=== PATIENT | female | born 1960 | race Caucasian/White ===

== ENCOUNTER 2016-05-11 07:16 | Day surgery (SDC) | payer MEDICAID ==
[2016-05-10 10:17] LABS: HEMATOCRIT 43.2 % (36.0-48.0); MCH 30.7 pg (26.0-34.0); MCHC 32.4 g/dL (31.0-37.0); MCV 94.7 fL (80.0-100.0); MEAN PLATELET VOLUME 10.7 fL (7.4-10.4); RBC 4.56 10x6/uL (4.00-5.40); RDW 12.9 % (11.5-14.5); WBC 5.4 10x3/uL (4.8-10.8)
[2016-05-10 10:22] LABS: ANION GAP 12.7 mmol/L (8-16); CALCIUM 9.8 mg/dL (8.5-10.1); CARBON DIOXIDE 28.4 mmol/L (21.0-32.0); CREATININE - SERUM 0.9 mg/dL (0.6-1.3); POTASSIUM - SERUM 4.1 mmol/L (3.5-5.1)
[2016-05-10 10:56] LABS: APPEARANCE CLEAR (CLEAR); COLOR YELLOW (YELLOW)
[2016-05-10 10:57] LABS: AMORPHOUS SEDIMENT >1+ /lpf (NONE SEEN); BACTERIA MODERATE /hpf (NONE SEEN); BILIRUBIN NEGATIVE (NEGATIVE); EPITHELIAL CELLS 0-5 /hpf (0-5); GLUCOSE NEGATIVE (NEGATIVE); KETONE NEGATIVE (NEGATIVE); LEUKOCYTE ESTERASE 2+ (NEGATIVE); MUCUS <1+ /lpf (NONE SEEN); NITRITE NEGATIVE (NEGATIVE); PROTEIN NEGATIVE (NEGATIVE)
[~2016-05-11] VITALS: Ht 165.1 cm; Wt 78.9 kg
[~2016-05-11 07:16] MED LIST: ALEVE220 MG PO; CYCLOBENZAPRINE10 MG PO; CYMBALTA30 MG; DYAZIDE 37.5/251 CAP PO; ESTRACE 0.5 MG0.5 MG PO; PROAIR HFA8.5 GM INH
[2016-05-11 09:00] VITALS: BP 131/55; Ht 165.1 cm; Wt 78.9 kg
[2016-05-11] MEDS ORDERED: HYDROCODON-ACE1 EAC7 PO (10:47)
--- NOTE | 2016-05-11 13:52 | OP ---
PATIENT NAME: MARY GARCIA MEDICAL RECORD: [id number] :60 LOCATION:D.[facility] ADMISSION DATE: SURGEON: SIMON APARICIO MD DATE OF OPERATION: 05/11/2016 SURGEON: Simon Aparicio MD PREOPERATIVE DIAGNOSES: 1. Right upper quadrant pain. 2. Biliary dyskinesia. POSTOPERATIVE DIAGNOSES: 1. Right upper quadrant pain. 2. Biliary dyskinesia. PROCEDURE PERFORMED: Laparoscopic cholecystectomy. ANESTHESIA: General. COMPLICATIONS: None. SPECIMENS: Gallbladder. Case was clean contaminated. ESTIMATED BLOOD LOSS: 10 cc. OPERATIVE COURSE: After consent was obtained, the patient was taken to the operating room and placed in the supine position on the operating table. Next, general anesthesia was given via endotracheal intubation. Thereafter, a timeout was taken to confirm the correct patient and procedure. The abdomen was prepped and draped in typical sterile fashion. Local anesthetic was injected just above the umbilicus. A stab incision was made with an 11-blade scalpel. Using a 5-mm bladeless optical trocar, the abdomen was entered under direct laparoscopic vision. Adequate pneumoperitoneum was achieved. The abdominal cavity was inspected. No evidence of bowel injury. No evidence of bleeding. The patient was placed in steep reverse Trendelenburg position. All 3 remaining trocars were then placed after the administration of local anesthetic under direct laparoscopic vision, two 5-mm trocars in the right upper quadrant and 11-mm trocar in the subxiphoid position. The fundus of the gallbladder was grasped and retracted cephalad. The infundibulum was grasped and retracted laterally. The peritoneum was incised using electrocautery. Blunt dissection was performed with a [place] dissector until the critical view was obtained. Cystic duct lateral, cystic artery medial, liver in the posterior window. Two clips were placed in the proximal cystic artery. Three clips were placed in the proximal cystic duct, one clip distal. The duct and artery were then transected with laparoscopic Metzenbaum scissors. The remaining portion of the gallbladder was then dissected off the liver bed using electrocautery. Once complete, it was grasped with the tenaculum and removed through the 11-mm trocar and sent for permanent pathology. Next, the operative field was copiously irrigated and suctioned. Careful attention was paid to hemostasis, which was obtained in the liver bed using electrocautery. The duct and artery were then inspected. There were [address] in the cystic duct, [address] in the cystic artery. The abdominal cavity was inspected. No evidence of bowel injury. No evidence of bleeding. No evidence of bile leak. At this time, all remaining instruments OPERATIVE REPORT [id number] MARY GARCIA were removed. The abdomen was desufflated. Trocars were removed. Skin was closed with 4-0 Monocryl, Mastisol and Steri-Strips. At the end of the case, all needle and instrument counts were correct. No complications occurred. The patient was extubated and transferred to the PACU in stable condition. TRANSINT:[id number] Voice Confirmation ID: [id number] DOCUMENT ID: [id number] SIMON APARICIO MD at 1352 CC: [id number] DICTATION DATE: 05/11/16 1051 PRESSURE TESTER OPERATOR: 05/11/16 110[id number] [place] [address]
== END 2016-05-11 15:25 | disposition home or self-care (01) ==
LOC: D.OPS 07:16 → D.PAN 09:30 → D.OPS 09:30
PROVIDERS: Anesthesiology
DX: K82.8 Other specified diseases of gallbladder (principal)

== ENCOUNTER → 2016-09-19 08:44 | Outpatient (CLI) | payer MEDICAID ==
[2016-05-11 09:00] VITALS: BMI 29.0
[~2016-09-19 08:44] MED LIST changes: +HYDROCODON-ACE1 EAC7 PO
== END ==
LOC: D.MAMMO 08:44
DX: Z12.31 Encounter for screening mammogram for malignant neoplasm of breast (principal)

== ENCOUNTER → 2018-01-30 07:46 | Outpatient (CLI) | payer MEDICAID ==
[2016-05-11 09:00] VITALS: BMI 29.0
== END | disposition home or self-care (01) ==
LOC: D.US 07:46
DX: K76.0 Fatty (change of) liver, not elsewhere classified (principal)

== ENCOUNTER 2018-02-28 17:39 | Emergency (ER) | payer MEDICAID ==
[~2018-02-28] VITALS: Ht 165.1 cm; Wt 79.5 kg
[2018-02-28 17:43] VITALS: Ht 165.1 cm; Wt 79.5 kg
[2018-02-28 18:21] LABS: BASOPHILS 0.5 % (0-2); EOSINOPHILS 0.6 % (0-7); HEMATOCRIT 40.7 % (36.0-48.0); HEMOGLOBIN 13.6 g/dL (12-16); IMMATURE GRANULOCYTES 0.3 % (0-5); LYMPHOCYTES 27.3 % (15-50); MCH 30.2 pg (26.0-34.0); MCHC 33.4 g/dL (31.0-37.0); MCV 90.4 fL (80.0-100.0); MEAN PLATELET VOLUME 10.3 fL (7.4-10.4); MONOCYTES 7.3 % (2-11); PLATELET COUNT 184 10x3/uL (130-400); WBC 6.4 10x3/uL (4.8-10.8)
[2018-02-28 18:33] LABS: APPEARANCE HAZY (CLEAR); BILIRUBIN NEGATIVE (NEGATIVE); COLOR YELLOW (YELLOW); GLUCOSE NEGATIVE (NEGATIVE); KETONE SMALL mg/dL (NEGATIVE); NITRITE NEGATIVE (NEGATIVE); PROTEIN NEGATIVE (NEGATIVE); UROBILINOGEN NORMAL (NORMAL)
[2018-02-28 19:36] LABS: ALBUMIN 3.8 g/dL (3.4-5.0); ALKALINE PHOSPHATASE 99 U/L (46-116); ALT (SGPT) 61 U/L (10-68); AMYLASE - SERUM 34 U/L (25-115); BILIRUBIN - TOTAL 0.59 mg/dL (0.2-1.3); CALC OSMOLALITY 282 mosm/kg (275-300); CALCIUM 9.1 mg/dL (8.5-10.1); CARBON DIOXIDE 21.8 mmol/L (21.0-32.0); CHLORIDE - SERUM 105 mmol/L (98-107); CREATININE - SERUM 0.8 mg/dL (0.6-1.3); GLUCOSE 71 mg/dL (74-106); LIPASE 92 U/L (73-393); POTASSIUM - SERUM 3.9 mmol/L (3.5-5.1); PROTEIN - SERUM 7.5 g/dL (6.4-8.2); SODIUM 142 mmol/L (136-145); TROPONIN-I < 0.017 ng/mL (0.000-0.060); UREA NITROGEN 17 mg/dL (7-18); eGFR NON AFRICAN AMERICAN 78 mL/min (90-120)
[2018-02-28 21:13] VITALS: BP 129/70
== END 2018-02-28 21:14 | disposition home or self-care (01) ==
LOC: D.ER 17:39
PROVIDERS: Family Medicine
DX: R10.31 Right lower quadrant pain (principal)

== ENCOUNTER → 2018-03-02 09:06 | Outpatient (CLI) | payer MEDICAID ==
[2018-02-28 17:43] VITALS: BMI 29.1
== END | disposition home or self-care (01) ==
LOC: D.RAD 09:06
DX: R10.9 Unspecified abdominal pain (principal); R11.2 Nausea with vomiting, unspecified; R13.10 Dysphagia, unspecified

== ENCOUNTER → 2018-03-28 10:57 | Outpatient (CLI) | payer MEDICAID ==
[2018-02-28 17:43] VITALS: BMI 29.1
[2018-04-03 03:10] LABS: OVA + PARASITE EXAM Final report (())
== END | disposition home or self-care (01) ==
LOC: D.LAB 10:57
PROVIDERS: Internal Medicine Gastroenterology
DX: R19.7 Diarrhea, unspecified (principal)

== ENCOUNTER 2018-09-04 14:29 | Observation (INO) | payer MEDICAID ==
[~2018-09-04] VITALS: Ht 165.1 cm; Wt 82.1 kg
--- NOTE | ~2018-09-04 | EC ---
PATIENT:MARY GARCIA DATE OF SERVICE: 09/04/18 SEX: F MEDICAL RECORD: [id number] DATE OF : 60 LOCATION:D.M2 D.210 AGE OF PATIENT: 58 ADMISSION DATE: 09/04/18 REFERRING PHYSICIAN: INTERPRETING PHYSICIAN: YARI SIM MD ECHOCARDIOGRAM REPORT ECHO CHARGES 4 ECHO COMPLETE Date: 09/05/18 CLINICAL DIAGNOSIS: SOB ECHOCARDIOGRAPHIC MEASUREMENTS (adult normal given) AC root (d.<3.7cm) 2.7 cm LV Septum d (<1.2 cm> 0.8 cm Valve Excursion 1.7 cm LV Septum (systole) 1.6 cm Left Atria (s.<4.0cm> 2.8 cm LVPW d(<1.2cm) 1.0 cm RV (d.<2.3cm) 2.2 cm LVPW (sytole) 1.8 cm LV diastole(<5.6CM) 5.1 cm MV E-F(>70mm/sec) cm LV systole 2.7 cm LVOT Diameter 1.9 cm MV exc.(>10mm) cm Est.ejection fraction (50-75%) % DOPPLER: LVIT cm/sec A 63.0 cm/sec E 71.0 cm/sec LA cm/sec RVSP mmHg LVOT 100 cm/sec AOP1/2T m/s Asc. Ao 120 cm/sec RVOT 67.0 cm/sec RA cm/sec PA 108 cm/sec AV Gradient Peak 5.7 mmHg AV Mean 2.7 mmHg AV Area 2.2 cm MV Gradient Peak 3.4 mmHg MV Mean 1.5 mmHg MV Area cm COMMENTS: [employer] Consultant: Claire BERNARDOE Government Relations Manager: 1 Dr. Sim TAPE# PACS Pericardial Effusion N DATE OF SERVICE: 09/05/2018 PROCEDURE: Echocardiogram. FINDINGS: 1. Left ventricular chamber size is within normal limits. Left ventricular systolic function is normal. Overall ejection fraction estimated at 55%. 2. Left atrium, right atrium and right ventricular chamber sizes are within normal limits. 3. Valvular structures have normal structure and motion. ECHOCARDIOGRAM REPORT [id number] MARY GARCIA 4. Doppler interrogation reveals trace tricuspid regurgitation, no other valvular insufficiency or stenosis. 5. No evidence of pericardial effusion or left ventricular thrombus. TRANSINT:[id number] Voice Confirmation ID: [id number] DOCUMENT ID: [id number] YARI SIM MD CC: [id number] DICTATION DATE: 09/06/1843 CERTIFIED PEDORTHOTIST: 09/06/18 0953 DIS IN 09/05/18 [id number] [place] [id number]
--- NOTE | ~2018-09-04 | ST ---
PATIENT:MARY GARCIA MEDICAL RECORD: [id number] SEX: F LOCATION:[address] ORDER #: ADMISSION DATE: 09/04/18 AGE OF PATIENT: 58 REFERRING PHYSICIAN: INTERPRETING PHYSICIAN: YARI BARRAZA MD DATE OF SERVICE: 09/05/2018 PROCEDURE: Nuclear stress test. INDICATION: Chest pain of unknown etiology. She was exercised on standard Lexiscan protocol with 24 mCi of sestamibi injected at peak stress. FINDINGS: There is homogeneous uptake throughout all segments at stress only images with no evidence of inducible ischemia or previous infarction. Gated SPECT was performed and reveals an ejection fraction of greater than 80%. OVERALL IMPRESSION: This is a normal nuclear stress test with no evidence of inducible ischemia or previous infarction. Symptomatology is noncardiac in etiology. TRANSINT:[id number] Voice Confirmation ID: [id number] DOCUMENT ID: [id number] YARI BARRAZA MD CC: [id number] DICTATION DATE: 09/05/18 1525 FITTER TYPE BAR AND SEGMENT: 09/06/18 0326 DIS IN 09/05/18 [facility] [address] [id number]
--- NOTE | ~2018-09-04 | CN ---
PATIENT NAME:MARY GARCIA MEDICAL RECORD: [id number] : 60 LOCATION:D. D.2103 ADMIT DATE: 09/04/18 ACCOUNT: [id number] CONSULTING PHYSICIAN: YARI BARRAZA MD REFERRING PHYSICIAN: CHAVO HERNANDEZ MD DATE OF CONSULTATION: 09/05/2018 ADMITTING DIAGNOSES: 1. Chest pain. 2. Shortness of breath. 3. Asthma. 4. Gastroesophageal reflux disease. 5. Hypertension. HISTORY OF PRESENT ILLNESS: Mrs. Garcia has been having episodes of chest pain and chest discomfort over the past 2 days. These are associated with shortness of breath and diaphoresis. The episodes would last up to 30 minutes, sometimes in conjunction with exertion, sometimes at rest. She presented to her primary care physician, was started on Ranexa for the chest pain. Does continue to have the episodes of chest pain. She is hypertensive and on Dyazide for the hypertension. Her troponin is normal. Her EKG is overall normal. PHYSICAL EXAMINATION: GENERAL APPEARANCE: Well-nourished, well-developed, appears stated age. Level of distress, comfortable. PSYCHIATRIC: Mental status, alert, normal affect. Orientation, oriented to time, place and person. EYES: Lids and conjunctiva, noninjected. No discharge, no pallor. ENT: Lips, teeth, gums, normal dentition. Oropharynx, no cyanosis, no pallor. NECK: Carotid arteries, bilateral normal upstroke, no bruits, no thrills. JUGULAR VEINS: No jugular venous pressure or distention. CERVICAL LYMPH NODES: Nontender, nonenlarged. THYROID: Not enlarged. Nontender. No nodules. LUNGS: Respiratory effort, unlabored. CHEST: Normal curvature. No thoracic deformity. No chest wall tenderness. Percussion, resonant. Auscultation, clear. No wheezes, no rales, no rhonchi. CARDIOVASCULAR: Precordial exam, nondisplaced. No heaves or pericardial thrills. Rate and rhythm, regular. Heart sounds, normal S1, normal S2. No S3, no gallop, no rub. Systolic murmur, not heard. Diastolic murmur, not heard. EXTREMITIES: No cyanosis, no edema. Peripheral pulses, full and equal in all extremities, except as noted. No bruits appreciated. ABDOMEN: Soft, nondistended. Normal aorta. No bruit. Nontender. No masses. Liver, nontender, no hepatomegaly. Spleen, nontender, no splenomegaly. MUSCULOSKELETAL: No joint tenderness. No joint swelling. No erythema. NEUROLOGICAL: Normal gait, normal strength, normal tone. SKIN: Warm and dry. OVERALL IMPRESSION: Chest pain, very typical for angina, but all objective studies are normal. We will get an echocardiogram due to the increased shortness of breath and get a stress test with Cardiolite imaging due to the chest pain for risk stratification. Further care depends upon the findings of these studies. TRANSINT:[id number] Voice Confirmation ID: [id number] DOCUMENT ID: [id number] CONSULT REPORT [id number] MARY GARCIA JEFFREY MD CC: [id number] DICTATION DATE: 09/05/18801 NET WASHER: 09/05/18 08 ADM IN [facility] [address] [id number]
[2018-09-04] MEDS ORDERED: CLARITIN 10 MG10 MG PO (14:40)
[2018-09-04] MEDS ORDERED: CBD OIL (14:41)
[2018-09-04] MEDS ORDERED: OMEPRAZOLE20 M1 PO (14:41)
[2018-09-04 15:14] LABS: BASOPHILS 0.3 % (0-2); EOSINOPHILS 0.8 % (0-7); HEMATOCRIT 37.4 % (36.0-48.0); HEMOGLOBIN 12.4 g/dL (12-16); IMMATURE GRANULOCYTES 0.2 % (0-5); LYMPHOCYTES 38.1 % (15-50); MCH 30.5 pg (26.0-34.0); MCHC 33.2 g/dL (31.0-37.0); MCV 91.9 fL (80.0-100.0); MEAN PLATELET VOLUME 10.6 fL (7.4-10.4); NEUTROPHILS 50.6 % (40-80); PLATELET COUNT 164 10x3/uL (130-400); RBC 4.07 10x6/uL (4.00-5.40); RDW 12.8 % (11.5-14.5); WBC 5.9 10x3/uL (4.8-10.8)
[2018-09-04 15:20] LABS: APTT 30.5 SECONDS (22.8-39.4); INR 1.03 (0.85-1.17)
[2018-09-04 15:27] LABS: ALBUMIN 3.3 g/dL (3.4-5.0); ALKALINE PHOSPHATASE 104 U/L (46-116); ALT (SGPT) 50 U/L (10-68); BILIRUBIN - TOTAL 0.44 mg/dL (0.2-1.3); CALC OSMOLALITY 281 mosm/kg (275-300); CALCIUM 8.4 mg/dL (8.5-10.1); CARBON DIOXIDE 26.9 mmol/L (21.0-32.0); CHLORIDE - SERUM 108 mmol/L (98-107); CREATININE - SERUM 0.9 mg/dL (0.6-1.3); GLUCOSE 81 mg/dL (74-106); POTASSIUM - SERUM 3.8 mmol/L (3.5-5.1); PROTEIN - SERUM 6.6 g/dL (6.4-8.2); SODIUM 141 mmol/L (136-145); UREA NITROGEN 18 mg/dL (7-18); eGFR NON AFRICAN AMERICAN 68 mL/min (90-120)
[2018-09-04 15:39] LABS: CKMB 1.3 U/L (0.0-3.6); CREATINE KINASE 103 UL (21-215); TROPONIN-I < 0.017 ng/mL (0.000-0.060)
--- NOTE | 2018-09-04 18:15 | NUR ---
ARRIVES TO ROOM VIA WHEELCHAIR FROM ER. ALERT AND ORIENTED X4. AMBULATES TO BED. GAIT STEADY. REFUSE SCDs. UP AD JULIANA. NO SIGNS OF DISTRESS. CONTINUE ADMISSION PROCESS. BED LOCKED AND LOW. CALL LIGHT IN REACH. TWO SIDERAILS UP.
[2018-09-04] MEDS ORDERED: RANEXA500 MG PO (18:19)
[2018-09-04] MEDS ORDERED: PROBIOTIC BLEN1 EACH PO (18:19)
[2018-09-04 18:34] VITALS: BP 127/57; BMI 28.6
--- NOTE | 2018-09-04 19:50 | NUR ---
RESUMING PT CARE. PT IS ALERT LAYING IN BED. NO ACUTE S/S OF DISTRESS NOTED. RESPIRATIONS ARE EVEN AND UNLABORED. BED IN LOW POSITION WITH CALL LIGHT IN REACH. WILL CONTINUE TO MONITOR PT AND FOLLOW PLAN OF CARE.
[2018-09-04 20:00] VITALS: BP 136/68
--- NOTE | 2018-09-04 23:13 | NUR ---
PT STATES SHE IS HAVING CHEST PAIN ON A NUMERIC SCALE OF 5. DR. HERNANDEZ WAS NOTIFIED AND ORDERED MORPHINE 1MG IV Q4 HRS PRN. NITROGLYCERIN 0.4MG SL. Q 5MP PRN FOR CHEST PAIN. AND PROTONIX 40MG TABLET PO DAILY AT 0600.
[2018-09-04 23:33] LABS: CKMB 1.1 U/L (0.0-3.6); CREATINE KINASE 92 UL (21-215)
[2018-09-04 23:39] LABS: TROPONIN-I < 0.017 ng/mL (0.000-0.060)
[2018-09-05] VITALS: BP 130/86
[2018-09-05 04:00] VITALS: BP 126/71
[2018-09-05 04:35] LABS: BASOPHILS 0.4 % (0-2); EOSINOPHILS 1.2 % (0-7); HEMATOCRIT 37.2 % (36.0-48.0); HEMOGLOBIN 12.3 g/dL (12-16); IMMATURE GRANULOCYTES 0.2 % (0-5); MCH 30.4 pg (26.0-34.0); MCHC 33.1 g/dL (31.0-37.0); MCV 91.9 fL (80.0-100.0); MEAN PLATELET VOLUME 10.7 fL (7.4-10.4); MONOCYTES 9.3 % (2-11); NEUTROPHILS 40.9 % (40-80); PLATELET COUNT 156 10x3/uL (130-400); RBC 4.05 10x6/uL (4.00-5.40); WBC 4.9 10x3/uL (4.8-10.8)
--- NOTE | 2018-09-05 04:45 | NUR ---
I have reviewed this patient and I concur with the Shift Assessment completed by the Licensed Practical Nurse today this shift.
[2018-09-05 05:06] LABS: ALBUMIN 3.1 g/dL (3.4-5.0); ALKALINE PHOSPHATASE 97 U/L (46-116); ALT (SGPT) 45 U/L (10-68); BILIRUBIN - TOTAL 0.61 mg/dL (0.2-1.3); CALCIUM 8.7 mg/dL (8.5-10.1); CARBON DIOXIDE 25.5 mmol/L (21.0-32.0); CHLORIDE - SERUM 110 mmol/L (98-107); CKMB 0.8 U/L (0.0-3.6); CREATINE KINASE 89 UL (21-215); CREATININE - SERUM 0.7 mg/dL (0.6-1.3); GLUCOSE 78 mg/dL (74-106); POTASSIUM - SERUM 3.8 mmol/L (3.5-5.1); PROTEIN - SERUM 6.4 g/dL (6.4-8.2); SODIUM 142 mmol/L (136-145); eGFR NON AFRICAN AMERICAN > 90 mL/min (90-120)
[2018-09-05 05:08] LABS: CALC OSMOLALITY 281 mosm/kg (275-300); TROPONIN-I < 0.017 ng/mL (0.000-0.060); UREA NITROGEN 12 mg/dL (7-18)
--- NOTE | 2018-09-05 07:23 | NUR ---
REPORT RECEIVED. WILL CONTINUE WITH POC. PT CURRENTLY LYING SUPINE. CALL LIGHT W/I REACH. PT IS AAO AND UP AD JULIANA. RR EVEN AND UNALBORED ON RA. NS INFUSING @100ML/HR VIA R.FOR PIV. PT DENIES ANY NEEDS AT THIS TIME. NO S/S OF DISTRESS NOTED. WILL CTM.
[2018-09-05 07:56] VITALS: BP 123/74
[2018-09-05 09:58] VITALS: Ht 165.1 cm; Wt 82.1 kg
--- NOTE | 2018-09-05 14:43 | NUR ---
I have reviewed this patient and I concur with the Shift Assessment completed by the Licensed Practical Nurse today this shift.
[2018-09-05 16:16] VITALS: BP 133/78
--- NOTE | 2018-09-06 07:31 | MORECARE ---
CASE MANAGEMENT DISCHARGE SUMMARY PATIENT: MARY GARCIA UNIT: [id number] ADM DATE: 09/04/18 AGE: 58 : 60 SEX: F ROOM/BED: D.2103 AUTHOR: JOSE MAYA PHYSICIAN: REFERRING PHYSICIAN: CHAVO HERNANDEZ MD DATE OF SERVICE: 09/06/18 Discharge Plan Patient Name: MARY GARCIA Facility: [facility]:[place] : 1960 Planned Disposition: Home Anticipated Discharge Date: 09/05/18 Discharge Date: 09/05/2018 Expected LOS: 1 Initial Reviewer: [email or web address] Initial Review Date: 09/06/2018 Generated: 09/06/18 8:31 am Patient Name: MARY GARCIA Page [id number] at 0731 All edits/amendments must be made on the electronic document DICTATION DATE: 09/06/18730 THREAD WINDER: KRISTYN 09/06/18730 RPT#: [id number] DC DATE:09/05/18 STATUS: DIS IN [facility] [address] [place] [address] END OF REPORT
== END 2018-09-05 20:18 | disposition home or self-care (01) ==
LOC: D.ER 14:29 → D.M2 17:50 → OBSVTIME 17:50 → D.M2 09-05 20:18
PROVIDERS: Family Medicine; ADMIT Internal Medicine Nephrology; ATTEND Internal Medicine Nephrology
DX: R07.89 Other chest pain (principal); I10 Essential (primary) hypertension; K21.9 Gastro-esophageal reflux disease without esophagitis; M79.7 Fibromyalgia; J44.9 Chronic obstructive pulmonary disease, unspecified; M32.9 Systemic lupus erythematosus, unspecified

== ENCOUNTER → 2018-11-23 08:59 | Outpatient (CLI) | payer MEDICAID ==
[2018-09-05 09:58] VITALS: BMI 28.6
[~2018-11-23 08:59] MED LIST changes: +CBD OIL; +CLARITIN 10 MG10 MG PO; +OMEPRAZOLE20 M1 PO; +PROBIOTIC BLEN1 EACH PO; +RANEXA500 MG PO
[2018-11-23 10:20] LABS: ALBUMIN 3.8 g/dL (3.4-5.0); BILIRUBIN - DIRECT 0.13 mg/dL (0.00-0.30); BILIRUBIN - INDIRECT 0.34 mg/dL (0.00-1.00); BILIRUBIN - TOTAL 0.47 mg/dL (0.2-1.3); PROTEIN - SERUM 6.8 g/dL (6.4-8.2)
== END | disposition home or self-care (01) ==
LOC: D.US 08:59
PROVIDERS: ATTEND Internal Medicine Gastroenterology
DX: K76.0 Fatty (change of) liver, not elsewhere classified (principal)

== ENCOUNTER → 2018-12-06 09:31 | Outpatient (CLI) | payer MEDICAID ==
[2018-09-05 09:58] VITALS: BMI 28.6
== END | disposition home or self-care (01) ==
LOC: D.MRI 09:31
PROVIDERS: ATTEND Internal Medicine Gastroenterology
DX: K86.9 Disease of pancreas, unspecified (principal)

== ENCOUNTER 2019-01-01 19:00 | Outpatient (CLI) | payer MEDICAID ==
[2018-09-05 09:58] VITALS: BMI 28.6
== END 2019-01-01 23:59 | disposition home or self-care (01) ==
LOC: D.MAMMO 19:00
PROVIDERS: ATTEND Clinical Nurse Specialist Family Health
DX: Z12.31 Encounter for screening mammogram for malignant neoplasm of breast (principal)

== ENCOUNTER → 2019-04-02 10:00 | Outpatient (CLI) | payer MEDICAID ==
[2018-09-05 09:58] VITALS: BMI 28.6
== END | disposition home or self-care (01) ==
LOC: D.MAMMO 02-13 10:30
PROVIDERS: ATTEND Clinical Nurse Specialist Family Health
DX: R92.8 Other abnormal and inconclusive findings on diagnostic imaging of breast (principal)